=== PATIENT | male | born 1955 | race Caucasian/White ===

== ENCOUNTER 2017-04-23 22:00 | Inpatient (IN) | payer OTHER ==
[~2017-04-23] VITALS: Ht 182.9 cm; Wt 80.3 kg
--- NOTE | ~2017-04-23 | PN ---
Unit #: [id number] #: [id number] Patient: JODIE COTA [id number] [facility] [address] [place] [address] [id number] MR#: [id number] NAME: JODIE COTA. ROOM: [facility] Age: 61 Sex: M Admission Date: 04/24/2017 : 1955 Attending Physician: César Teague M.D. Admitting Physician: César Teague M.D. Primary Care Physician: Primary Care Physician Katie TAO NOTES DATE 04/26/2017 DISCUSSION Mr. Tinoco is a 61-year-old male seen on 04/26/2017. Patient interviewed. Chart reviewed. Obtained information from nursing staff. Patient reported having trouble sleeping, severe anxiety, mood lability. Patient tolerating medication fairly well. Currently on detox protocol. Complete review of system unremarkable. MENTAL STATUS EXAMINATION General appearance, patient dressed casually. Attention span, concentration fair. Oriented in time, place and person. Mood and affect sad, dysphoric, anxious. Speech regular rate. Thought process goal-directed. Patient denied any thoughts of harming self or others but reported having trouble sleeping, anxiety, depression, trouble sleeping. Recent and remote memory poor. Insight and judgement fair to slightly impaired. DIAGNOSES 1. Alcohol use disorder, severe. 2. Major depressive disorder, recurrent, moderate. ASSESSMENT/PLAN Advised to continue with current medication and therapeutic protocol and advised Vistaril 25 mg t.i.d. for anxiety and trazodone 50 mg at bedtime for sleep. If needed, consider further adjustment of medication. Dictated by... Marcelino Erazo/megan TD: 04/26/2017 22:38 JOB #: [id number] Unit #: [id number] #: [id number] Patient: JODIE COTA LAVONNE PROGRESS NOTES Page 1 of 1 X César Teague MD X PROGRESS NOTE
--- NOTE | ~2017-04-23 | PN ---
Unit #: [id number] #: [id number] Patient: JODIE COTA [id number] [facility] [address] [place] [address] [id number] MR#: [id number] NAME: JODIE COTA. ROOM: P174 Age: 61 Sex: M Admission Date: 04/24/2017 : 1955 Attending Physician: César Teague M.D. Admitting Physician: Marcelino Erazo PROGRESS NOTES DATE 04/27/2017 DISCUSSION Mr. Tinoco is a 61-year-old male, seen on 04/27/2017. The patient interviewed, chart reviewed, and obtained information from nursing staff. The patient reportedly was able to sleep good, decrease in anxiety. Tolerating medication fairly well. REVIEW OF SYSTEMS Complete review of system unremarkable. MENTAL STATUS EXAMINATION General appearance, the patient dressed casually. Attention span and concentration, fair. Oriented in timed, place and person. Mood and affect, labile. Speech, monotone. Thought process, concrete. The patient denied any thoughts of harming self or others. Recent and remote memory, poor. Insight and judgment, poor. DIAGNOSES 1. Mood disorder, NOS. 2. Alcohol use disorder, severe. ASSESSMENT AND PLAN Advised to continue with current medication and therapeutic protocol. If needed, consider further adjustment of medication. Dictated by... Marcelino Erazo/freddy TD: 04/29/2017 13:09 JOB #: [id number] Unit #: [id number] #: [id number] Patient: JODIE COTA PROGRESS NOTES Page 1 of 1 X César Teague MD NOTE
--- NOTE | ~2017-04-23 | PA ---
Unit #: [id number] #: [id number] Patient: JODIE COTA [id number] [place] [address] [id number] MR#: [id number] NAME: JODIE COTA ROOM: P174 Age: 61 Sex: M Admission Date: 04/24/2017 : 1955 Date of Assessment: 04/24/2017 Attending Physician: César Teague M.D. Admitting Physician: César Teague M.D. Primary Care Physician: Primary Care Physician No PSYCHIATRIC ASSESSMENT INFORMANTS The patient reliability, fair; chart reliability, good. CHIEF COMPLAINT Alcohol withdrawal, alcohol abuse. HISTORY OF PRESENT ILLNESS Mr. Tinoco is a 61-year-old male, presented with the above-mentioned complaint. The patient has a history of previous inpatient treatment at [facility] for depression and alcohol abuse, lives alone. The patient needing help with detox from alcohol. The patient reported drinking between a 1 pint to 1.5 pints daily. The patient has not had a drink in the last 24 hours. The patient denied any suicidal or homicidal ideation or any psychotic symptom. The patient reported depression and anxiety, but denied any suicidal or homicidal ideation. The patient reported history of withdrawal seizures. Reported tremor, anxiety, headache, diarrhea, sweating. He needing inpatient admission at this time for psychiatric stabilization. The patient reported tobacco use, age of onset 9; alcohol, age of onset 15. The patient reported legal problem, wreck health problems from drinking. The patient reported history of withdrawal symptoms, but no history of any IV drug use, HIV, hepatitis, or blackouts. The patient reported diarrhea, headache, irritability, depressed mood, restlessness. Needing admission to inpatient unit at this time for psychiatric stabilization. PAST PSYCHIATRIC HISTORY Remarkable for history of previous treatment as mentioned above at [facility]. FAMILY HISTORY AND SOCIAL HISTORY The patient lives alone and poor support system. The patient denied any history of abuse. No legal problems. FAMILY PSYCHIATRIC ILLNESS Unknown at this time. MEDICAL HISTORY Remarkable for COPD, hypertension, gastroesophageal reflux disease. MEDICATION HISTORY The patient is currently on Lipitor 10 mg daily, Symbicort, Claritin, Skelaxin, Zoloft 100 mg daily, Lopressor, Protonix, Zestril. Unit #: [id number] #: [id number] Patient: JODIE COTA ALLERGIES No known drug allergies. SUBSTANCE ABUSE HISTORY Please see above. REVIEW OF SYSTEMS HEENT: Eyes, clear. Ears, nose, mouth, and throat; clear. CARDIOVASCULAR: Unremarkable. RESPIRATORY: Unremarkable. GI: Unremarkable. : Unremarkable. SKIN: Unremarkable. LYMPH NODE: Unremarkable. NEUROLOGIC: Unremarkable. ENDOCRINE: Unremarkable. HEMATOLOGIC: Unremarkable. ALLERGIC/IMMUNOLOGIC: Unremarkable. MUSCULOSKELETAL: Muscle strength and tone, no atrophy or abnormal movement. Gait normal. MENTAL STATUS EXAMINATION CONSTITUTIONAL: Measurement of vital signs; temperature 98.6, pulse 84, respirations 18, blood pressure 112/65, height 6 feet, and weight 177 pounds. General appearance; the patient dressed casually. The patient did not show any facial deformity. Musculoskeletal, please see above. PSYCHIATRIC EXAMINATION Description of speech; regular rate, normal volume, normal articulation, coherent. Description of thought process, goal directed. Description of association, intact. Description of abnormal psychotic thinking; the patient denied any hallucination, delusions, mood lability, substance abuse. Description of the patient's judgment, concerning everyday activity, poor. Social situation, poor. Concerning psychiatric condition, poor. Complete mental status examination; oriented in time, place, and person. Recent and remote memory, fair. Attention span and concentration fair. Language able to name object and repeat phrases. Fund of knowledge, aware of current event and past history. Vocabulary intact. Mood and affect, sad and dysphoric. Insight and judgment, fair to poor. ASSETS AND LIABILITIES Assets, the patient is articulate and able to take care of his ADL. Liability, history of depression and substance abuse. ADMITTING DIAGNOSES Psychiatric: Alcohol use disorder, severe, F10.20; major depressive disorder, recurrent, severe, F33.2. Secondary diagnosis: Deferred. Medical diagnosis: Chronic obstructive pulmonary disease, hypertension, gastroesophageal reflux disease. Stressors: Psychosocial stressors. PSYCHIATRIC PLAN AND TREATMENT GOAL AND DISCHARGE PLAN Unit #: [id number] #: [id number] Patient: JODIE COTA 1. Advised to admit the patient on the inpatient unit. Provide safe, supportive, and structured environment. 2. Ordered labs; CBC, CMP, UA, and UDS. 3. Detox protocol and detox monitoring. Advised to resume home medication. If needed, consider further adjustment of medication. 4. The patient to attend group therapy, individual therapy, chemical dependency group. Treatment goal to attain euthymic mood, gain insight into his problem, and learn coping skills. 5. Discharge plan, plan to stabilize the patient and consider followup in outpatient program. ESTIMATED LENGTH OF STAY 7 days. Dictated by... Marcelino Erazo/nanette TD: 04/25/2017 14:45 JOB #: [id number] PSYCHIATRIC ASSESSMENT Page 1 of 1 X César Teague MD X PSYCHIATRIC ASSESSMENT
--- NOTE | ~2017-04-23 | HP ---
Unit #: [id number] #: [id number] Patient: JODIE COTA [id number] [place] [address] [id number] MR#: [id number] NAME: JODIE COTA. ROOM: P174 Age: 61 Sex: M Admission Date: 04/24/2017 : 1955 Attending Physician: César Teague M.D. Admitting Physician: César Teague M.D. Primary Care Physician: Primary Care Physician No HISTORY AND PHYSICAL HISTORY OF PRESENT ILLNESS Jodie is a 61 year old admitted to [facility] because of his abuse of alcohol. He is detoxing. PAST MEDICAL HISTORY 1. Long history of alcohol abuse. 2. History of withdrawal seizures. 3. Hyperlipidemia. 4. High blood pressure. 5. COPD. 6. History of colon polyps, benign. PAST SURGICAL HISTORY 1. Hemorrhoidectomy. 2. Polypectomy. ALLERGIES Penicillin. SOCIAL HISTORY He smokes greater than 1 pack per day. Drinks at least 2 pints of liquor on a daily basis and denies illicit drug use. FAMILY HISTORY Medically noncontributory. REVIEW OF SYSTEMS CONSTITUTIONAL: No fever or chills. HEENT: Denies any sore throat, ear pain or runny nose. CARDIOVASCULAR: Denies chest pain, irregular heart rhythm or palpitations. CHEST: Denies shortness of breath or cough. No hemoptysis. GASTROINTESTINAL: Denies nausea, vomiting, diarrhea or chronic constipation. ENDOCRINE: Denies history of increased thirst or urination. No recent significant weight loss or gain. GENITOURINARY: Denies dysuria, frequency, or hematuria. SKIN: Denies any rashes. HEMATOLOGIC: Denies history of increased bleeding or bruising. MUSCULOSKELETAL: Denies any hot, swollen joints. No generalized muscle pain. NEUROLOGIC: Denies problems with vision or speech. No frequent, severe headaches. No numbness, tingling or weakness in any extremities. Denies loss of bladder or bowel control. Unit #: [id number] #: [id number] Patient: JODIE COTA CURRENT MEDICATIONS 1. Detox protocol. 2. Lipitor 10 mg daily. 3. Benadryl 25 mg q.h.s. 4. Symbicort daily. 5. Skelaxin 800 mg b.i.d. 6. Zoloft 100 mg daily. 7. Lopressor 50 mg b.i.d. 8. Protonix 40 mg daily. 9. Zestril 5 mg daily. 10. Multivitamin 1 daily. 11. Nicotine patch 14 mg daily. 12. Detox protocol. PHYSICAL EXAMINATION GENERAL: Alert, well-nourished, in no apparent distress. VITAL SIGNS: Blood pressure 112/64, heart rate 80, respirations 16, temperature 98.6. WEIGHT: 177. HEIGHT: 6 feet 0 inches. SKIN: Warm and dry without rash or lesion. HEENT: Normocephalic. TMs not viewed. Oral and nasal passages clear. Conjunctivae clear. PERRLA. EOMs intact. NECK: Supple without lymphadenopathy or thyromegaly. HEART: Regular rate and rhythm without murmur. LUNGS: Clear. ABDOMEN: Soft, nontender. : Not done. EXTREMITIES: No evidence of cyanosis, clubbing or edema. Moves all without focal deficit. NEUROLOGICAL: Grossly within normal limits. Cranial Nerves: II: Visual gonzalez are intact. III, IV AND : Extraocular movements are intact. Pupils are equal, round and reactive to light. V: Facial sensation is grossly normal. VII: Facial movements and expression are normal. VIII: Auditory acuity grossly intact. IX, X: Uvula is midline. Phonation is normal. XI: Patient shrugs shoulders and turns head normally. XII: Tongue protrudes in the midline. Sensory and Motor Function: Sensory and motor sensation is grossly normal. Motor: moves all extremities well. Coordination: Gait is normal. Deep Tendon Reflexes: Intact. IMPRESSION Psychiatric admission. RECOMMENDATIONS PSYCHIATRIC: Per psychiatrist. MEDICAL: See no contraindication to participate in facility's activities. MEDICAL PROGNOSIS Good. MEDICAL CONDITION Stable. Unit #: [id number] #: [id number] Patient: JODIE COTA Dictated by... Ariadne Whitaker P.A.-C. for Marcelino Castanon/megan TD: 04/24/2017 19:36 JOB #: [id number] HISTORY AND PHYSICAL Page 1 of 1 X Ariadne Whitaker HISTORY AND PHYSICAL
--- NOTE | ~2017-04-23 | PN ---
Unit #: [id number] #: [id number] Patient: JODIE COTA [id number] [facility] [address] [place] [address] [id number] I MR#: [id number] NAME: JODIE COTA. ROOM: P174 Age: 61 Sex: M Admission Date: 04/24/2017 : 1955 Attending Physician: César Teague M.D. Admitting Physician: César Teague M.D. Primary Care Physician: Primary Care Physician Katie BANERJEE PROGRESS NOTES DATE OF SERVICE: 04/28/2017 DISCUSSION Mr. Jodie Sexton is a 61-year-old male, seen on 04/28/2017. The patient interviewed, chart reviewed, and obtained information from the nursing staff. The patient was compliant and cooperative. Mood was labile. The patient reports making progress. Had trouble sleeping. REVIEW OF SYSTEMS Complete review of system unremarkable. MENTAL STATUS EXAMINATION General appearance; the patient dressed casually. Attention span and concentration, fair. Oriented in time, place, and person. Mood and affect, labile. Speech, monotone. Thought process, concrete. The patient denied any thoughts of harming self or others. Recent and remote memory, poor. Insight and judgment, poor. DIAGNOSES 1. Alcohol use disorder, severe. 2. Major depressive disorder, recurrent, moderate. ASSESSMENT/PLAN Advised to continue with current medication and therapeutic protocol with a plan to consider discharge this week with a plan to follow up in outpatient program. Dictated by... Marcelino Erazo/nanette TD: 04/29/2017 14:07 JOB #: [id number] Unit #: [id number] #: [id number] Patient: JODIE COTA PEAJUDITH PROGRESS NOTES Page 1 of 1 X César Teague MD X PROGRESS NOTE
--- NOTE | ~2017-04-23 | PN ---
Unit #: [id number] #: [id number] Patient: JODIE CHAPPELL [id number] [facility] [address] [place] [address] [id number] MR#: [id number] NAME: JODIE CHAPPELL ROOM: [facility] Age: 61 Sex: M Admission Date: 04/24/2017 : 1955 Attending Physician: César Teague M.D. Admitting Physician: César Teague M.D. Primary Care Physician: Primary Care Physician Katie TAO NOTES DATE OF SERVICE 04/25/2017 DISCUSSION Mr. Jodie Chappell is a 51-year-old male seen on 04/25/2017. The patient interviewed, chart reviewed. Obtained information from nursing staff. The patient currently on detox protocol. Withdrawn, isolative. Flat affect. Sad, dysphoric, anxious. Reported having trouble sleeping. Anxiety. The patient is currently on a detox protocol. The patient's vital signs: 98.0, 80, 105/61. Complete Review of Systems: Unremarkable. MENTAL STATUS EXAMINATION General Appearance: The patient dressed casually. Attention span, concentration: Fair. Oriented in time, place, and person. Mood and affect: Sad, dysphoric, anxious. Speech: Regular rate. Thought process: Goal-directed. The patient denied any thoughts of harming self or others but severe anxiety. Withdrawn, isolative. Recent and remote memory: Poor. Insight and judgment: Poor. DIAGNOSES 1. Alcohol use disorder, severe. 2. Major depressive disorder, recurrent, moderate. ASSESSMENT/PLAN Advised to continue with current medication and therapeutic protocol. If needed, consider further adjustment of medication. Dictated by... Marcelino Erazo/bryan TD: 04/26/2017 10:46 JOB #: [id number] Unit #: [id number] #: [id number] Patient: JODIE CHAPPELLCE PROGRESS NOTES Page 1 of 1 X César Teague MD PROGRESS NOTE
--- NOTE | ~2017-04-23 | DS ---
Unit #: [id number] #: [id number] Patient: JODIE COTA [id number] [facility] [address] [place] [address] [id number] MR#: [id number] NAME: JODIE COTA. ROOM: [facility] Age: 61 Sex: M Admission Date: 04/24/2017 : 1955 Discharge Date: 04/29/2017 Attending Physician: César Teague M.D. Primary Care Physician: Primary Care Physician No DISCHARGE SUMMARY REASON FOR ADMISSION Alcohol withdrawal. HOSPITAL COURSE The patient was admitted to inpatient unit on April 24 and discharged on 04/29/2017. The patient was treated with group therapy, individual therapy, and medication management. The patient was responsive to treatment, showed improvement. The patient was subsequently discharged with a plan to follow up in outpatient program. DISCHARGE MEDICATIONS 1. Zoloft 100 mg once daily for depression. 2. Vistaril 25 mg 3 times a day for anxiety. 3. Sinequan 100 mg at bedtime for sleep. DISCHARGE DIAGNOSES PSYCHIATRIC: Alcohol use disorder, severe, F10.20. Major depressive disorder, recurrent, severe, F33.2. SECONDARY: Deferred. MEDICAL: COPD. Hypertension. Gastroesophageal reflux disease. STRESSORS: Psychosocial stressor. FOLLOWUP CARE The patient to follow up in outpatient clinic as per social media manager. CONDITION AT DISCHARGE The patient pleasant, cooperative. Denied any psychotic symptom or any suicidal ideation. PROGNOSIS Guarded. DIET AND ACTIVITY As tolerated. Dictated by... César Teague M.D. SZC/bzg Unit #: [id number] #: [id number] Patient: JODIE COTA TD: 04/30/2017 11:17 JOB #: [id number] DISCHARGE SUMMARY Page 1 of 1 X César Teague MD X DISCHARGE SUMMARY
[2017-04-24 09:48] LABS: URINE APPEARANCE CLOUDY; URINE BLOOD NEG (NEG); URINE COLOR ORANGE; URINE GLUCOSE NEG (NEG); URINE KETONE TRACE (NEG); URINE LEUKOCYTE ESTERASE 1+ (NEG); URINE NITRATE POS (NEG); URINE PROTEIN 2+ (NEG); URINE SPECIFIC GRAVITY 1.032 (1.003-1.035)
[2017-04-24 09:49] LABS: BASOPHIL% 0.3 % (0-2.5); EOSINOPHIL# 0.1 X10e3 (0-0.7); HEMATOCRIT 40.9 % (38.0-50.0); HEMOGLOBIN 14.4 gm/dL (13.0-16.0); LYMPHOCYTE# 1.4 X10e3 (1.0-3.5); LYMPHOCYTE% 25.1 % (17.0-45.0); MEAN CELL VOLUME 97.3 FL (83-96); MEAN CORPUSCULAR HEMOGLOBIN 34.2 PG (28-34); MEAN CORPUSCULAR HGB CONC 35.1 g/dL (30-36); MEAN PLATELET VOLUME 7.7 FL (6.5-11.5); MONOCYTE# 0.3 X10e3 (0-1.0); MONOCYTE% 6.2 % (3.0-12.0); NEUTROPHIL# 3.8 X10e3 (1.5-7.1); NEUTROPHIL% 67.4 % (40-75); PLATELET COUNT 113 X10e3 (140-420); RED CELL DISTRIBUTION WIDTH 13.7 % (11.0-15.5); WHITE BLOOD COUNT 5.6 X10e3 (4.0-10.5)
[2017-04-24 09:57] LABS: ALBUMIN SERUM 3.8 g/dL (3.5-5.0); BILIRUBIN,TOTAL 1.6 mg/dL (0.2-2.0); CALCIUM SERUM 8.7 mg/dL (8.4-10.2); GLOM FILT RATE Estimated 80.3 mL/min (>60); PROTEIN TOTAL SERUM 6.2 g/dL (6.0-8.3)
[2017-04-24 10:00] LABS: DIFF IND NO; POTASSIUM 2.1 mmol/L (3.5-5.1)
[2017-04-24 10:25] LABS: AMPHETAMINE NEG (NEG); BARBITURATES NEG (NEG); BENZODIAZEPINES POS (NEG); COCAINE NEG (NEG); MARIJUANA NEG (NEG); OPIATES NEG (NEG); TRICYCLIC ANTIDEPRESSANTS NEG (NEG); U METHADONE NEG (NEG)
[2017-04-24 10:46] LABS: URINE BILIRUBIN POS (NEG)
[2017-04-24 10:48] LABS: U HYALINE CASTS AUWI 100-200 /[LPF]
[2017-04-24 10:49] LABS: URINE SQUAMOUS EPITHELIAL CELL FEW /[HPF]
[2017-04-24 10:51] LABS: URINE BACTERIA AUWI 1+ (NEGATIVE)
== END 2017-04-29 10:10 | DRG 897 ==
LOC: P1E 04-24 02:00
PROVIDERS: Psychiatry & Neurology Psychiatry
PROC: HZ2ZZZZ Detoxification Services for Substance Abuse Treatment (ICD-10-PCS; principal; 2017-04-24)
DX: F10.20 Alcohol dependence, uncomplicated (principal); F33.2 Major depressive disorder, recurrent severe without psychotic features; K21.9 Gastro-esophageal reflux disease without esophagitis; I10 Essential (primary) hypertension; F17.200 Nicotine dependence, unspecified, uncomplicated; Z88.0 Allergy status to penicillin
CPT/HCPCS: 80053; 80307; 81003; 85025; 86592